=== PATIENT | female | born 2000 | race Caucasian/White ===

== ENCOUNTER 2021-10-07 16:21 | Emergency (ER) | payer OTHER ==
[~2021-10-07] VITALS: Ht 157.5 cm; Wt 52.3 kg
[2021-10-07] MEDS ORDERED: NAPROXEN 250 MG TABLET PO ONE (18:00)
[2021-10-07 18:52] VITALS: BP 130/72
== END 2021-10-07 18:55 | disposition home or self-care (01) ==
LOC: EMS 16:24
DX: S63.501A Unspecified sprain of right wrist, initial encounter (principal); X50.1XXA Overexertion from prolonged static or awkward postures, initial encounter; Y93.89 Activity, other specified; Y92.89 Other specified places as the place of occurrence of the external cause; Y99.8 Other external cause status
CPT/HCPCS: 99283

== ENCOUNTER 2022-05-05 19:29 | Emergency (ER) | payer OTHER ==
[~2022-05-05] VITALS: Ht 162.6 cm; Wt 57.3 kg
[2022-05-05] MEDS ORDERED: CLOT15CR29 TP (21:56)
[2022-05-05 22:18] VITALS: BP 128/85
== END 2022-05-05 22:20 | disposition home or self-care (01) ==
LOC: EMS 19:29
DX: B35.3 Tinea pedis (principal)
CPT/HCPCS: 99282; Z7502

== ENCOUNTER 2023-01-04 13:25 | Emergency (ER) | payer OTHER ==
[~2023-01-04] VITALS: Ht 160 cm; Wt 62.7 kg
[~2023-01-04 13:25] MED LIST: CLOT15CR29 TP
[2023-01-04] MEDS ORDERED: FAMOTIDINE 20 MG TABLET PO ONE (15:30)
[2023-01-04] MEDS ORDERED: FAMO20 PO (15:40)
[2023-01-04 15:52] VITALS: BP 142/74
== END 2023-01-04 15:53 | disposition home or self-care (01) ==
LOC: EMS 13:29
DX: R21 Rash and other nonspecific skin eruption (principal)
CPT/HCPCS: 99283

== ENCOUNTER 2023-11-09 23:38 | Emergency (ER) | payer OTHER ==
[~2023-11-09] VITALS: Ht 160 cm; Wt 63.6 kg
[~2023-11-09 23:38] MED LIST changes: +FAMO20 PO
[2023-11-10] MEDS ORDERED: IBUPROFEN 600 MG TABLET PO ONE (00:45)
[2023-11-10] MEDS ORDERED: IBUP-1554 PO (01:08)
[2023-11-10 01:20] VITALS: BP 119/86; PULSE 75; RESP 16; TEMP 97.3
== END 2023-11-10 01:50 | disposition home or self-care (01) ==
LOC: EMS 23:39
DX: S13.4XXA Sprain of ligaments of cervical spine, initial encounter (principal); S39.012A Strain of muscle, fascia and tendon of lower back, initial encounter; V89.2XXA Person injured in unspecified motor-vehicle accident, traffic, initial encounter; Y93.89 Activity, other specified; Y92.89 Other specified places as the place of occurrence of the external cause; Y99.8 Other external cause status
CPT/HCPCS: 99283